=== PATIENT | male | born 1930 | race Caucasian/White ===

== ENCOUNTER 2018-08-22 10:40 | Emergency (ER) | payer MEDICARE, BC ==
[~2018-08-22] VITALS: Ht 172.7 cm; Wt 65.9 kg
[~2018-08-22 10:40] MED LIST: ESOM40CA PO
[2018-08-22] MEDS ORDERED: SODIUM CHLORIDE FLUSH 10ML SYR IVF ONE (11:30)
[2018-08-22 11:55] LABS: ALANINE AMINOTRANSFERASE 24 U/L (12-78); ALBUMIN 3.7 g/dL (3.4-5.0); ANION GAP 4 mmol/L (5-15); CALCIUM 8.5 mg/dL (8.5-10.1); CHLORIDE 111 mmol/L (98-107); CREATININE 1.33 mg/dL (0.7-1.3)
[2018-08-22 11:57] LABS: ALKALINE PHOSPHATASE 70 U/L (45-117); BILIRUBIN,TOTAL 1.7 mg/dL (0.2-1.0); TOTAL PROTEIN 6.9 g/dL (6.4-8.2)
[2018-08-22 12:03] LABS: BASOPHILS # (AUTO) 0.03 x10^3/uL (0-0.1); BASOPHILS % (AUTO) 0 % (0-1); EOSINOPHILS # (AUTO) 0.03 x10^3/uL (0-0.4); EOSINOPHILS % (AUTO) 0 % (1-7); LYMPHOCYTES % (AUTO) 11 % (22-44); MD NO; MEAN CORPUSCULAR HGB CONC 33.8 g/dL (33.2-36.2); MEAN CORPUSCULAR VOLUME 91.7 fL (81-97); MEAN PLATELET VOLUME 7.9 fL (7.4-10.4); MONOCYTES # (AUTO) 0.64 x10^3/uL (0.2-0.8); MONOCYTES % (AUTO) 8 % (2-9); NEUTROPHILS # (AUTO) 6.79 x10^3/uL (1.8-6.8); NEUTROPHILS % (AUTO) 81 % (42-75); PLATELET COUNT 210 x10^3/uL (130-400); RED BLOOD COUNT 5.05 x10^6/uL (4.38-5.82); RED CELL DISTRIBUTION WIDTH 13.9 % (9.4-14.8)
[2018-08-22 12:23] LABS: CULTURE INDICATED? YES; MICROSCOPIC INDICATED
[2018-08-22] MEDS ORDERED: OMNIPAQUE 350 MG/ML, 100ML BOTTLE ONE (12:38)
[2018-08-22 13:30] VITALS: BP 119/71
== END 2018-08-22 13:32 | disposition home or self-care (01) ==
LOC: ED 12:17
DX: N20.0 Calculus of kidney (principal); N30.00 Acute cystitis without hematuria; N28.9 Disorder of kidney and ureter, unspecified; Z87.891 Personal history of nicotine dependence
CPT/HCPCS: 36415; 74177; 80053; 81001; 83690; 85025; 87077; 87086; 87186; 93005; 99284; Q9967

== ENCOUNTER → 2018-08-23 | Outpatient (CLI) | payer MEDICARE, BC | END | disposition home or self-care (01) | LOC: CFH 14:32 | PROVIDERS: ATTEND Family Medicine | DX: I08.3 Combined rheumatic disorders of mitral, aortic and tricuspid valves (principal) | CPT/HCPCS: 93306 ==

== ENCOUNTER → 2019-10-17 | Outpatient (CLI) | payer MEDICARE, BC ==
[~2019-10-17] MED LIST changes: +OMNIPAQUE 350 MG/ML, 150 ML BOTTLE ONE
== END | disposition home or self-care (01) ==
LOC: CFH 14:09
PROVIDERS: ATTEND Physician Assistant
DX: K40.20 Bilateral inguinal hernia, without obstruction or gangrene, not specified as recurrent (principal); M16.12 Unilateral primary osteoarthritis, left hip; J84.10 Pulmonary fibrosis, unspecified; N40.0 Benign prostatic hyperplasia without lower urinary tract symptoms; M47.9 Spondylosis, unspecified
CPT/HCPCS: 74178; Q9967

== ENCOUNTER 2019-10-31 04:33 | Inpatient (IN) | payer BC, MEDICARE ==
[~2019-10-31] VITALS: Ht 172.7 cm; Wt 63.1 kg
[~2019-10-31 04:33] MED LIST changes: -OMNIPAQUE 350 MG/ML, 150 ML BOTTLE ONE
[2019-10-31] MEDS ORDERED: ONDANSETRON 2MG/ML, 2ML IVPush ONE (05:00)
[2019-10-31] MEDS ORDERED: SODIUM CHLORIDE 0.9% 1,000ML IVBOLUS ONE (05:00)
[2019-10-31] MEDS ORDERED: SODIUM CHLORIDE FLUSH 10ML SYR IVF ONE (05:00)
[2019-10-31] MEDS ORDERED: MORPHINE SULFATE 4 MG/ML, 1ML ONE ×2 (05:06→05:41)
[2019-10-31] MEDS ORDERED: ONDANSETRON 2MG/ML, 2ML ONE (05:07)
[2019-10-31] MEDS: MORPHINE SULFATE 4 MG/ML, 1ML IVPush PRN ×4 (05:11→05:44)
--- NOTE | 2019-10-31 05:13 | NUR ---
pt medicated per nov. erp at pt's bedside for eval
[2019-10-31 05:29] LABS: BASOPHILS # (AUTO) 0.06 x10^3/uL (0-0.1); BASOPHILS % (AUTO) 1 % (0-1); EOSINOPHILS % (AUTO) 1 % (1-7); LYMPHOCYTES # (AUTO) 1.87 x10^3/uL (1-3.4); LYMPHOCYTES % (AUTO) 23 % (22-44); MD NO; MEAN CORPUSCULAR HEMOGLOBIN 31.2 pg (27.5-34.5); MEAN CORPUSCULAR HGB CONC 33.8 g/dL (33.2-36.2); MEAN CORPUSCULAR VOLUME 92.1 fL (81-97); MEAN PLATELET VOLUME 7.5 fL (7.4-10.4); MONOCYTES # (AUTO) 0.72 x10^3/uL (0.2-0.8); MONOCYTES % (AUTO) 9 % (2-9); NEUTROPHILS # (AUTO) 5.32 x10^3/uL (1.8-6.8); NEUTROPHILS % (AUTO) 66 % (42-75); PLATELET COUNT 223 x10^3/uL (130-400); RED BLOOD COUNT 5.07 x10^6/uL (4.38-5.82); RED CELL DISTRIBUTION WIDTH 14.3 % (9.4-14.8)
[2019-10-31 05:33] LABS: ALANINE AMINOTRANSFERASE 49 U/L (12-78); ALBUMIN 3.6 g/dL (3.4-5.0); ANION GAP 8 mmol/L (5-15); CALCIUM 9.1 mg/dL (8.5-10.1); CHLORIDE 108 mmol/L (98-107); CREATININE 1.11 mg/dL (0.7-1.3)
[2019-10-31 05:38] LABS: ALKALINE PHOSPHATASE 85 U/L (45-117); BILIRUBIN,TOTAL 2.2 mg/dL (0.2-1.0); TOTAL PROTEIN 7.6 g/dL (6.4-8.2); TROPONIN I < 0.015 ng/mL (0.000-0.045)
--- NOTE | 2019-10-31 05:44 | NUR ---
pt requesting more pain medication, medicated per mar
--- NOTE | 2019-10-31 05:52 | NUR ---
tried to get pt for CT, pt is using urinal. will check back in 10mins.
--- NOTE | 2019-10-31 06:11 | NUR ---
urine sample sent
[2019-10-31] MEDS ORDERED: OMNIPAQUE 350 MG/ML, 100ML BOTTLE ONE (06:20)
[2019-10-31 06:27] LABS: MICROSCOPIC AUTO
[2019-10-31 06:31] LABS: CULTURE INDICATED? YES
--- NOTE | 2019-10-31 06:39 | NUR ---
PT RESTING ON GURNEY, MONITORS IN PLACE, CALL LIGHT WITHIN REACH. AWAITING CT RESULT
--- NOTE | 2019-10-31 06:46 | NUR ---
REPORT GIVEN TO RYAN CHANEL
--- NOTE | 2019-10-31 06:47 | NUR ---
Bedside report received from Samantha RN, pt care assumed by Yariel DAVIS at this time. Pt resting in gurney, in gown, call light within reach. NAD, pt denies additional needs at this time. Even and unlabored respirations. WCTM.
--- NOTE | 2019-10-31 07:00 | NUR ---
CT called about CT read, medical laboratory technician to inquire w/ radiologist about read.
[2019-10-31] MEDS ORDERED: PINK LADY ENEMA 490 ML BOTTLE PR ONE (07:30)
--- NOTE | 2019-10-31 07:45 | NUR ---
Late Entry: Pt resting in christi, son at bedside. NAD, denies additional needs at this time. Call light within reach, even and unlabored respirations. WCTM
--- NOTE | 2019-10-31 08:26 | NUR ---
Enema administered, pt transferred with RN supervision to bedside commode. Pt given call light and toilet paper. Given instructions to call RN if he needs anything else and to call prior to getting off the commode. DAE.
[2019-10-31] MEDS ORDERED: morphine SULFATE 10 MG/ML, 1ML IVPush PRN (09:30)
[2019-10-31] MEDS ORDERED: morphine SULFATE 10 MG/ML, 1ML IV PRN (09:30)
[2019-10-31] MEDS ORDERED: hydrALAzine 20 MG/ML, 1ML IV PRN (09:30)
[2019-10-31] MEDS ORDERED: ACETAMINOPHEN 325 MG TABLET PO PRN (09:30)
[2019-10-31] MEDS ORDERED: IBUPROFEN 600 MG TABLET PO PRN (09:30)
[2019-10-31] MEDS ORDERED: NITROGLYCERIN 0.4 MG/SPRAY SL PRN (09:30)
[2019-10-31] MEDS ORDERED: NITROGLYCERIN 0.4 MG BOTTLE (25 TABS) SL PRN (09:30)
[2019-10-31] MEDS ORDERED: BACLOFEN 10 MG TABLET PO PRN (09:30)
[2019-10-31] MEDS ORDERED: HYDROcodone/APAP 5/325 TABLET PO PRN (09:30)
--- NOTE | 2019-10-31 09:36 | NUR ---
Pt resting in gurney, waiting for admit bed. NAD, denies additional needs at this time. Even and unlabored respirations, call light within reach, WCTM. Son at bedside
--- NOTE | 2019-10-31 09:53 | NUR ---
Attempted to call report, RN unavailable, will attempt to call back in 5 mins.
[2019-10-31 09:56] LABS: CHOL/HDL RATIO 5.3; LDL/HDL RATIO 3.7 (0.5-3.0)
--- NOTE | 2019-10-31 10:45 | NUR ---
Pt resting in gurney, call light within reach, denies additional needs at this time, given water for comfort. Even and unlabored respirations, NAD. WCTM. Waiting for tele bed.
--- NOTE | 2019-10-31 11:28 | NUR ---
Pt transferred to hospital bed. NAD, denies additional needs at this time. Even and unlabored respirations, Call light within reach. Son in law at bedside. WCTM.
[2019-10-31] MEDS: POLYETHYLENE GLYCOL 17 GM PACKET PO SCH ×2 (11:35→22:34)
--- NOTE | 2019-10-31 11:45 | NUR ---
pt sitting in chair at bedside, eating leanne crackers. Ji, son in law, . Call when moved up to bed. TM
--- NOTE | 2019-10-31 11:54 | NUR ---
MEASUREMENT ANALYST: PT AMBULATORY WITH STEADY GAIT TO ROOM. PORFIRIO
--- NOTE | 2019-10-31 12:22 | NUR ---
pt resting in hospital bed, eyes closed, even and unlabored respirations, placed blankets over pt for comfort, emptied urinal. NAD, WCTM
--- NOTE | 2019-10-31 13:25 | NUR ---
Report given to Gail DAVIS, pt is RTG. Resting in hospital bed, respirations unlabored, NAD, denies additional needs at this time.
[2019-10-31 13:45] VITALS: BP 138/78
[2019-10-31] MEDS ORDERED: NAPR220T77 PO (17:23)
[2019-10-31] MEDS ORDERED: HEPARIN 25,000 UNITS/250ML PMX 250 ML IV PRN (17:30)
[2019-10-31] MEDS ORDERED: HEPARIN 5,000 UNITS/ML, 1ML IV PRN (17:30)
[2019-10-31] MEDS ORDERED: HEPARIN 5,000 UNITS/ML, 1ML IV ONE (17:30)
[2019-10-31] MEDS ORDERED: ASPIRIN 81 MG TABLET CHEW PO ONE (18:00)
[2019-10-31 20:17] VITALS: BP 117/62
[2019-10-31] MEDS: SODIUM CHLORIDE FLUSH 10ML SYR IVF SCH (22:34)
[2019-10-31] MEDS: ATORVASTATIN 40 MG TABLET PO SCH (22:34)
[2019-10-31] MEDS ORDERED: MAALOX/HYOSCYAMINE/LIDOCAINE 45 ML BTL PO ONE (23:00)
[2019-11-01 01:28] VITALS: BP 155/81
[2019-11-01] MEDS ORDERED: PANTOPRAZOLE 40 MG IV IVPush SCH (05:00)
[2019-11-01] MEDS: ASPIRIN 325 MG TABLET EC PO SCH (05:56)
[2019-11-01] MEDS: PANTOPROZOLE 40MG TABLET PO SCH (05:56)
[2019-11-01 08:01] VITALS: BP 128/69
[2019-11-01] MEDS ORDERED: PANTOPROZOLE 40MG TABLET PO SCH (09:00)
[2019-11-01] MEDS: SODIUM CHLORIDE FLUSH 10ML SYR IVF SCH ×2 (09:00→20:59)
[2019-11-01] MEDS ORDERED: SODIUM CHLORIDE 0.9% 1,000 ML IV SCH (11:00)
[2019-11-01] MEDS: POLYETHYLENE GLYCOL 17 GM PACKET PO SCH ×2 (13:00→20:58)
[2019-11-01 14:09] VITALS: BP 138/69
[2019-11-01] MEDS ORDERED: TICAGRELOR 90 MG TABLET ONE (14:59)
[2019-11-01] MEDS ORDERED: FENTANYL PF 100 MCG/2ML ONE (14:59)
[2019-11-01] MEDS ORDERED: LIDOCAINE-MPF 1%, 5ML ONE (14:59)
[2019-11-01] MEDS ORDERED: MIDAZOLAM 1 MG/ML, 5ML ONE (14:59)
[2019-11-01] MEDS ORDERED: VERAPAMIL 2.5 MG/ML, 2ML ONE (14:59)
[2019-11-01] MEDS ORDERED: BIVALIRUDIN 250 MG ONE (14:59)
[2019-11-01] MEDS ORDERED: HEPARIN 1,000 UNITS/ML, 10ML ONE (14:59)
[2019-11-01] MEDS: SODIUM CHLORIDE 0.9% 1,000 ML IV SCH (17:17)
[2019-11-01] MEDS ORDERED: CALCIUM CARBONATE 500 MG TAB.CHEW ONE (18:11)
[2019-11-01] MEDS ORDERED: CALCIUM CARBONATE 500 MG TAB.CHEW PO PRN (18:30)
[2019-11-01] MEDS ORDERED: ONDANSETRON 2MG/ML, 2ML ONE (18:41)
[2019-11-01] MEDS ORDERED: ONDANSETRON 2MG/ML, 2ML IVPush ONE (19:00)
[2019-11-01 20:13] VITALS: BP 154/70
[2019-11-01] MEDS: TICAGRELOR 90 MG TABLET PO SCH (20:58)
[2019-11-01] MEDS: ATORVASTATIN 40 MG TABLET PO SCH ×2 (20:58→21:00)
[2019-11-02 01:27] VITALS: BP 156/66
[2019-11-02] MEDS: SODIUM CHLORIDE 0.9% 1,000 ML IV SCH ×2 (01:41→07:31)
[2019-11-02] MEDS: ASPIRIN 325 MG TABLET EC PO SCH (03:53)
[2019-11-02 05:24] LABS: BASOPHILS # (AUTO) 0.07 x10^3/uL (0-0.1); BASOPHILS % (AUTO) 1 % (0-1); EOSINOPHILS # (AUTO) 0.09 x10^3/uL (0-0.4); EOSINOPHILS % (AUTO) 1 % (1-7); LYMPHOCYTES # (AUTO) 1.05 x10^3/uL (1-3.4); LYMPHOCYTES % (AUTO) 14 % (22-44); MD NO; MEAN CORPUSCULAR HEMOGLOBIN 31.4 pg (27.5-34.5); MEAN CORPUSCULAR HGB CONC 34.2 g/dL (33.2-36.2); MEAN PLATELET VOLUME 7.3 fL (7.4-10.4); MONOCYTES # (AUTO) 0.79 x10^3/uL (0.2-0.8); MONOCYTES % (AUTO) 10 % (2-9); NEUTROPHILS # (AUTO) 5.59 x10^3/uL (1.8-6.8); NEUTROPHILS % (AUTO) 74 % (42-75); PLATELET COUNT 249 x10^3/uL (130-400); RED BLOOD COUNT 4.52 x10^6/uL (4.38-5.82); RED CELL DISTRIBUTION WIDTH 13.4 % (9.4-14.8)
[2019-11-02] MEDS: PANTOPROZOLE 40MG TABLET PO SCH (05:27)
[2019-11-02 05:36] LABS: CHLORIDE 109 mmol/L (98-107)
[2019-11-02 05:54] LABS: ANION GAP 7 mmol/L (5-15); CALCIUM 8.6 mg/dL (8.5-10.1); CREATININE 0.96 mg/dL (0.7-1.3)
[2019-11-02 07:01] VITALS: BP 146/76
[2019-11-02] MEDS: TICAGRELOR 90 MG TABLET PO SCH (09:05)
[2019-11-02] MEDS: POLYETHYLENE GLYCOL 17 GM PACKET PO SCH (09:07)
[2019-11-02] MEDS: SODIUM CHLORIDE FLUSH 10ML SYR IVF SCH (09:07)
[2019-11-02] MEDS ORDERED: LISINOPRIL 5 MG TABLET PO SCH (10:00)
[2019-11-02] MEDS ORDERED: METOPROLOL SUCCINATE 25 MG TAB.ER.24H PO SCH (10:00)
[2019-11-02] MEDS ORDERED: ASPI81TA45 PO ×2 (12:09)
[2019-11-02] MEDS ORDERED: LISI5TAB7 PO (12:09)
[2019-11-02] MEDS ORDERED: ATOR40TA78 PO (12:09)
[2019-11-02] MEDS ORDERED: METO25TA91 PO (12:09)
[2019-11-02] MEDS ORDERED: TICA90TA PO (12:09)
[2019-11-02 13:00] VITALS: BP 168/82
== END 2019-11-02 16:21 | disposition home or self-care (01) | DRG 251 ==
LOC: ED 08:56 → SUATTDRO 09:08 → EDIP 09:23 → INTOOBSV 09:23 → OBSVTOIN 09:23 → 5SO 13:54 → DCLOUNGE 11-02 15:55
PROVIDERS: ADMIT Hospitalist; ATTEND Internal Medicine
PROC: 4A023N7 Measurement of Cardiac Sampling and Pressure, Left Heart, Percutaneous Approach (ICD-10-PCS; principal; 2019-11-01)
PROC: 02713ZZ Dilation of Coronary Artery, Two Arteries, Percutaneous Approach (ICD-10-PCS; 2019-11-01)
PROC: B211YZZ Fluoroscopy of Multiple Coronary Arteries using Other Contrast (ICD-10-PCS; 2019-11-01)
PROC: B215YZZ Fluoroscopy of Left Heart using Other Contrast (ICD-10-PCS; 2019-11-01)
DX: I21.4 Non-ST elevation (NSTEMI) myocardial infarction (principal); K21.9 Gastro-esophageal reflux disease without esophagitis; E78.5 Hyperlipidemia, unspecified; K59.00 Constipation, unspecified; Z80.43 Family history of malignant neoplasm of testis; Z86.19 Personal history of other infectious and parasitic diseases; Z87.891 Personal history of nicotine dependence; R09.89 Other specified symptoms and signs involving the circulatory and respiratory systems; Z88.6 Allergy status to analgesic agent; Z88.2 Allergy status to sulfonamides
CPT/HCPCS: 36415; 74177; 76870; 80048; 80053; 80061; 81001; 83690; 83735; 84100; 84484; 85025; 85520; 87086; 92920; 92928; 93005; 93306; 93458; 96361; 96374; 96375; 96376; 99156; 99157; 99285; C1769; C1876; C1894; G0378; J0583; J1644; J2250; J2405; J3010; Q9967; C1725; C1887; J2270; J7030

== ENCOUNTER → 2020-07-16 | Outpatient (CLI) | payer MEDICARE, BC ==
[~2020-07-16] MED LIST changes: +ASPI81TA45 PO; +ATOR40TA78 PO; +LISI5TAB7 PO; +METO25TA91 PO; +NAPR220T77 PO; +REGADENOSON 0.4 MG/5 ML SYRINGE ONE; +TICA90TA PO
== END | disposition home or self-care (01) ==
LOC: CVU 06:41
PROVIDERS: ATTEND Internal Medicine Cardiovascular Disease
DX: I08.2 Rheumatic disorders of both aortic and tricuspid valves (principal); I21.19 ST elevation (STEMI) myocardial infarction involving other coronary artery of inferior wall; I11.9 Hypertensive heart disease without heart failure; I25.10 Atherosclerotic heart disease of native coronary artery without angina pectoris
CPT/HCPCS: 78452; 93017; 93306; 93356; A9502; J2785